=== PATIENT | male | born 1935 | race Caucasian/White ===

== ENCOUNTER 2018-07-03 11:44 | Inpatient (IN) | payer OTHER ==
[~2018-07-03] VITALS: Ht 177.8 cm; Wt 69.0 kg
--- NOTE | ~2018-07-03 | EKG ---
[address] [address] ELECTROCARDIOGRAM REPORT Name: MALLORIE KYLE Room #: 211-P [facility] M.R.#: [id number] Admission: 07/03/18 Attend Phys: Garrett Booker MD Discharge: Date of : 39 Report #: [id number] THIS REPORT FOR: //name// [facility] ED Test Date: 2018-07-03 Test Time: 11:52:17 Pat Name: MALLORIE KYLE Department: Room: 211 Gender: M Financial Reporting Consultant: BRENDA : 1935 Requested By: Reece Luz Order Number: [id number] MD: Fareed High Measurements Intervals [place] Rate: 81 P: -5 GA: 174 QRS: -11 QRSD: 96 T: 37 QT: 380 QTc: 441 Interpretive Statements Sinus rhythm Compared to ECG 08/10/2009 21:43:37 No significant changes Electronically Signed On 07-04-2018 16:49:29 CDT by Fareed High [email or web address] <ELECTRONICALLY SIGNED> By: Fareed High MD 07/04/18 1649 D: [id number] Fareed High MD /WILLOW
--- NOTE | ~2018-07-03 | HC ---
[facility] [address] CONSULTATION Name: MALLORIE KYLE Room #: [facility] Madi#: [id number] Admission: 07/03/18 Attend Phys: Garrett Booker MD Discharge: Date of : 39 Report #: [id number] THIS REPORT FOR: //name// CC: JOSE LUIS physician/PCP Garrett Booker DATE OF SERVICE: 07/04/2018 REASON FOR CONSULTATION: Chest pain. HISTORY OF PRESENT ILLNESS: The patient is an 82-year-old [place] speaking male whose is admitted to the hospital. Yesterday, when I was evaluating his , he was complaining of chest discomfort and a blood pressure was taken. His systolic blood pressure was 180. The family wanted to give the patient some of his 's blood pressure medications and I recommended against this and being evaluated at the Emergency Room. He went in the Emergency Room and was admitted last night. He reports that his chest pain is improving and now resolved. He denies problems with shortness of breath. He denies PND or orthopnea. He denies presyncope or syncope. REVIEW OF SYSTEMS: A 12-point review of systems was performed. GENERAL: Denies fevers or chills. HEENT: No sore throat. CARDIOVASCULAR: As above. PULMONARY: No productive cough. GASTROINTESTINAL: No nausea or vomiting. GENITOURINARY: He does have difficulty urinating and does have urinary incontinence. NEUROLOGIC: No focal weakness or prior strokes. PAST MEDICAL HISTORY: None, as he refuses to see a physician or take medications. SOCIAL HISTORY: The patient quit smoking about 5 years ago and smoked about a pack a day. FAMILY HISTORY: Noncontributory. ALLERGIES: None. HOME MEDICATIONS: None. PHYSICAL EXAMINATION: VITAL SIGNS: Temperature is 36.8, pulse 72, respirations 16, blood pressure 174/99, sats 98%. GENERAL: He is in no acute distress, lying flat. [facility] [address] [place] [address] CONSULTATION Name: MALLORIE KYLE Room #: [facility]#: [id number] Admission: 07/03/18 Attend Phys: Garrett Booker MD Discharge: Date of : 39 Report #: [id number] HEENT: Sclerae are anicteric. Oropharynx is clear. NECK: Supple, no thyromegaly. HEART: Regular rate and rhythm with no murmurs, rubs, gallops. LUNGS: Clear to auscultation bilaterally. ABDOMEN: Soft, nontender, nondistended. EXTREMITIES: No clubbing, cyanosis, edema. NEUROLOGIC: Cranial nerves 2-12 are intact. DIAGNOSTIC DATA: A 12-lead EKG shows sinus rhythm, normal intervals, no ischemic changes. His chest x-ray, I personally reviewed, shows no acute pulmonary process. Telemetry shows no significant arrhythmias. LABORATORY DATA: White count 6, hemoglobin 15, platelets 217. INR 1. Chemistry: Sodium 137, potassium 4.0, BUN 16, creatinine 1.0, glucose 109. Troponin was negative. ProBNP was within normal limits. ASSESSMENT: 1. Hypertensive urgency. 2. Chest pain. 3. Possible enlarged prostate. SUMMARY: The patient is an 82-year-old [place] speaking male, presenting with chest pain and evidence of elevated blood pressure. His blood pressure still remains high and I will increase his Norvasc from a dose of 5 mg to 10 mg tonight. I will also add hydrochlorothiazide 25 mg a day. Tomorrow, we will get an echocardiogram and have the patient undergo a nuclear stress test. We will check a fasting lipid in the morning and a PSA as well. By: [id number] Fareed High MD /nt
--- NOTE | ~2018-07-03 | 2DMMODE ---
[facility] [address] [place] [address] 2 D/M-MODE ECHOCARDIOGRAM Name: MALLORIE KYLE Room #: 211-P ADM IN .R.#: [id number] Admission: 07/04/18 Attend Phys: Garrett Booker MD Discharge: Date of : 39 Date of Service: 07/05/18 1324 Report #: [id number] THIS REPORT FOR: //name// APPROVED REPORT Study performed: 07/05/2018 12:29:24 EXAM: Comprehensive 2D, Doppler, and color-flow Echocardiogram Patient Location: Bedside Room #: 211 Status: routine BSA: 1.86 HR: 60 bpm BP: 148/79 mmHg Rhythm: NSR Other Information Study Quality: Adequate/poor parasternal window Technically limited study due to limited cooperation, lung artifact, heavy breathing. Indications Chest pain, HTN urgency 2D Dimensions RVDd: 34.68 mm IVSd: 11.08 (7-11mm) LVOT Diam: 22.31 (18-24mm) LVDd: 33.87 mm PWd: 7.25 (7-11mm) LVDs: 23.72 (25-40mm) Aortic Root: 39.15 mm Volumes Left Atrial Volume (Systole) Single Plane 4CH: 22.19 mL Single Plane 2CH: 26.45 mL LA ESV Index: 15.00 mL/m2 Aortic Valve AoV Peak Nilton.: 1.12 m/s AO Peak Gr.: 5.02 mmHg LVOT Max P.69 mmHg LVOT Max V: 1.08 m/s CLAUDIA Vmax: 3.78 cm2 Mitral Valve E/A Ratio: 0.6 [facility] [address] [address] 2 D/M-MODE ECHOCARDIOGRAM Name: MALLORIE KYLE Room #: 211-P ADM IN ..#: [id number] Admission: 07/04/18 Attend Phys: Garrett Booker MD Discharge: Date of : 39 Date of Service: 07/05/18 1324 Report #: [id number] MV Decel. Time: 313.88 ms MV E Max Nilton.: 0.65 m/s MV A Nilton.: 1.18 m/s MV PHT: 91.02 ms IVRT: 124.57 ms Pulmonary Valve PV Peak Nilton.: 0.94 m/s PV Peak Gr.: 3.53 mmHg Tricuspid Valve TR Peak Nilton.: 2.08 m/s RAP Estimate: 5.00 mmHg TR Peak Gr.: 17.27 mmHg PA Pressure: 22.00 mmHg Left Ventricle The left ventricle is normal size. There is normal LV segmental wall motion. There is normal left ventricular wall thickness. Left ventricular systolic function is normal. LVEF is 55-60%. Mild diastolic dysfunction is present (impaired relaxation pattern). Right Ventricle The right ventricle is normal size. The right ventricular systolic function is normal. Atria The left atrium size is normal. The right atrium size is normal. Aortic Valve Aortic valve is trileaflet. No aortic regurgitation is present. There is no aortic valvular stenosis. Mitral Valve The mitral valve is normal in structure. Trace mitral regurgitation. Tricuspid Valve The tricuspid valve is normal in structure. Trace to mild tricuspid regurgitation. Estimated PAP is 20-25mmHg. Pulmonic Valve Pulmonic valve is not well visualized. Mild pulmonic regurgitation. Great Vessels [facility] [address] [place] [address] 2 D/M-MODE ECHOCARDIOGRAM Name: MALLORIE KYLE Room #: 211-P [facility] M.R.#: [id number] Admission: 07/04/18 Attend Phys: Garrett Booker MD Discharge: Date of : 39 Date of Service: 07/05/18 1324 Report #: [id number] Aortic root is mildly dilated. Ascending aorta is not well visualized. IVC is normal in size and collapses >50% with inspiration. Pericardium There is no pericardial effusion. <Conclusion> The left ventricle is normal size. LVEF is 55-60%. Aortic valve is trileaflet. The mitral valve is normal in structure. Trace mitral regurgitation. The tricuspid valve is normal in structure. Trace to mild tricuspid regurgitation. Estimated PAP is 20-25mmHg. Pulmonic valve is not well visualized. Mild pulmonic regurgitation. Aortic root is mildly dilated. There is no pericardial effusion. <ELECTRONICALLY SIGNED> By: Mango Gómez MD 07/05/184 23 23 Mango Gómez MD /INF
[2018-07-03 11:46] VITALS: BP 197/101
[2018-07-03 12:13] LABS: ABSOLUTE NEUTROPHILS 4.9 thou/uL (1.4-8.2); BASOPHILS 0.5 % (0.0-2.0); EOSINOPHILS 1.5 % (0.0-3.0); HEMATOCRIT 44.7 % (42.0-52.0); HEMOGLOBIN 15.3 gm/dL (14.0-18.0); LYMPHOCYTES 19.5 % (24.0-44.0); MCH 32.8 pg (26.0-34.0); MCHC 34.3 g/dL (28.0-37.0); MCV 95.6 fL (80.0-100.0); MONOCYTES 7.4 % (1.0-8.0); PLATELET COUNT 217 thou/uL (150-400); POLYS 71.1 % (36.0-66.0); RBC 4.67 mil/uL (4.50-6.00); RDW 13.7 % (10.5-14.5); WBC 6.8 thou/uL (4.0-11.0)
[2018-07-03 12:25] LABS: ANION GAP 6 mmol/L (7-16); BUN 16 mg/dL (7-18); CALCIUM 9.1 mg/dL (8.5-10.1); CHLORIDE 104 mmol/L (98-107); CO2 27 mmol/L (21-32); GLUCOSE 109 mg/dL (74-106); SODIUM 137 mmol/L (136-145)
[2018-07-03 12:33] LABS: ALBUMIN 3.2 g/dL (3.4-5.0); MAGNESIUM 2.1 mg/dL (1.8-2.4); SGOT 22 U/L (15-37); SGPT 20 U/L (30-65); TOTAL BILIRUBIN 0.4 mg/dL (<0.1-1.0); TOTAL PROTEIN 7.2 g/dL (6.4-8.2); TROPONIN-I <0.06 ng/mL (<0.06)
[2018-07-03 12:36] LABS: APTT 35.9 Seconds (24.5-32.8)
[2018-07-03 13:07] VITALS: BP 175/85
[2018-07-03 13:24] VITALS: BP 147/89
[2018-07-03 15:15] VITALS: BP 152/69
[2018-07-03 20:34] VITALS: BP 186/99
[2018-07-03 23:11] VITALS: BP 177/104
[2018-07-04 04:22] VITALS: BP 182/107
[2018-07-04 08:00] VITALS: BP 174/99
[2018-07-04 11:30] LABS: HEMATOCRIT 42.9 % (42.0-52.0); HEMOGLOBIN 14.7 gm/dL (14.0-18.0); MCH 32.7 pg (26.0-34.0); MCHC 34.4 g/dL (28.0-37.0); RBC 4.51 mil/uL (4.50-6.00)
[2018-07-04 11:38] LABS: CREATININE 0.9 mg/dL (0.7-1.3)
[2018-07-04 12:22] VITALS: BP 166/101
[2018-07-04 16:12] VITALS: BP 153/87
[2018-07-04 20:35] VITALS: BP 155/77
[2018-07-05 04:45] VITALS: BP 132/76
[2018-07-05 05:20] LABS: CHOLESTEROL 165 mg/dL (<200); HDL CHOLESTEROL 55 mg/dL (>40); LDL CHOLESTEROL 103 mg/dL (<100); SERUM ASSESSMENT Clear; TRIGLYCERIDE 37 mg/dL (<150); VLDL 7 mg/dL (<40)
[2018-07-05 07:13] VITALS: BP 148/79
[2018-07-05 15:23] VITALS: BP 148/64
[2018-07-05] MEDS ORDERED: NORVASC10 MG PO (16:05)
[2018-07-05] MEDS ORDERED: HYDROCHLOROTHIA25 M1 PO (16:09)
[2018-07-05] MEDS ORDERED: ASPIR 8181 MG PO (16:09)
[2018-07-05 16:26] VITALS: BP 148/64
== END 2018-07-05 16:44 | disposition home or self-care (01) | DRG 305 ==
LOC: ER 11:44 → EROBS 12:55 → 2N 13:40
PROVIDERS: Emergency Medicine; Hospitalist; Internal Medicine Cardiovascular Disease
DX: I16.0 Hypertensive urgency (principal); E46 Unspecified protein-calorie malnutrition; I10 Essential (primary) hypertension; F41.9 Anxiety disorder, unspecified; F03.90 Unspecified dementia, unspecified severity, without behavioral disturbance, psychotic disturbance, mood disturbance, and anxiety; E78.5 Hyperlipidemia, unspecified; Z87.891 Personal history of nicotine dependence; Z68.21 Body mass index [BMI] 21.0-21.9, adult; Z28.21 Immunization not carried out because of patient refusal
CPT/HCPCS: 10081